=== PATIENT | female | born 1970 | race Asian ===

== ENCOUNTER 2019-07-14 17:53 | Emergency (ER) | payer OTHER ==
[~2019-07-14] VITALS: Ht 160 cm; Wt 59.0 kg
[2019-07-14 18:05] VITALS: BP_SYST 136
--- NOTE | 2019-07-14 18:05 | NUR ---
Patient to [facility] for evaluation. Side rails up. Report given to JORDIN Urrutia
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
--- NOTE | 2019-07-14 19:20 | NUR ---
Report to Zenon BRENNER
--- NOTE | 2019-07-14 20:34 | NUR ---
ER Dr. Mcbride at bedside examining patient.
--- NOTE | 2019-07-14 20:58 | NUR ---
Patient given written and verbal discharge instructions and verbalizes understanding. ER MD discussed with patient the results and treatment provided. Patient in stable condition. ID arm band removed. Rx of Motrin and Alburtis given. Patient educated on pain management and to follow up with PMD. Pain Scale 0. Opportunity for questions provided and answered. Medication side effect fact sheet provided.
[2019-07-14 20:59] VITALS: BP_SYST 128
== END 2019-07-14 20:58 | disposition home or self-care (01) ==
LOC: SED 17:53
DX: M79.622 Pain in left upper arm (principal); M54.2 Cervicalgia; V89.2XXA Person injured in unspecified motor-vehicle accident, traffic, initial encounter; Y93.89 Activity, other specified; Y92.89 Other specified places as the place of occurrence of the external cause; Y99.8 Other external cause status
CPT/HCPCS: 99283